=== PATIENT | male | born 1975 | race African-American/Black ===

== ENCOUNTER 2017-04-28 18:51 | Inpatient (IN) | payer MEDICAID ==
[~2017-04-28] VITALS: Ht 177.8 cm; Wt 76.2 kg
--- NOTE | 2017-04-28 18:45 | NUR ---
PT RECIEVED FROM EMS DIRECT ADMIT FROM [place] WITH HTN. 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 PT WAS ON CARDENE DRIP PER EMS. PT IS UNCOOPERATIVE AND UNWILLING TO GIVE INFORMATION TO STAFF IN ORDER TO PROCEDE WITH CARE. PT HAS HEMASPLIT IN RIGHT CHEST WITH 4X4 GAUZE AND PAPER TAPE SECURING. DRESSING IS PEELING OFF AND POTENTIAL INFECTION RISK. REPLACED WITH NEW CVL DRESSING IN STERILE FASHION. DR MOORE CONSULTED. ASSESSMENT COMPLETED AT THIS TIME. PT PLACED ON O2 AT 2L NC. SAT 98% RESPIRATIONS SHALLOW. CTA IN UPPER LOBES BILATERALLY. DIMINNISHED IN MIDDLE AND LOWERR LOBES. WILL CONTINUE TO MONITOR THROUGHOUT SHIFT
--- NOTE | 2017-04-28 18:50 | NUR ---
PT CAME VIA EMS ON . ONCOMING NURSE NOTIFIED.
[2017-04-28 19:00] VITALS: BP 178/140
[2017-04-28 20:00] VITALS: BP 207/139
[2017-04-28 21:00] VITALS: BP 225/151
--- NOTE | 2017-04-28 21:00 | NUR ---
DR MOORE HAS SEEN PT AND NEW ORDERS RECIEVED. PT IV NO LONGER PATENT. WILL ATTEMPT TO REPLACE. B/P ELEVATED IN 190'S AND LOW 200'S SYSTOLIC AT THIS TIME.
[2017-04-28 22:00] VITALS: BP 214/155
[2017-04-28 22:37] VITALS: BP 164/117; BMI 24.1
[2017-04-28 23:00] VITALS: BP 213/148
--- NOTE | 2017-04-28 23:00 | NUR ---
REASSESSMENT COMPLETED SEE FLOWSHEET FOR FULL DETAILS. PT IV ATTEMPTED BY MYSELF AND 3 EXPERIENCED NURSED WITH MULTIPLE ATTEMPTS EACH. NEW ACCESS FINALLY GAINED IN LEFT AC. PO MEDS HAVE NOT REDUCE B/P WILL PLACE ON NIPRIDE DRIP. WILL CONTINUE TO MONITOR THROUGHOUT SHIFT.
[2017-04-29] VITALS (70 sets, daily range): BP systolic 112–228; BP diastolic 72–155; Ht 177.8 cm; Wt 76.2 kg
--- NOTE | 2017-04-29 01:00 | NUR ---
PT ON NIPRIDE DRIP AT 1.5 MCG/KG/MIN WILL TITRATE ORDERED. B/P NOW IN 180'S SYSTOLIC THOUGH DYSTOLIC REMAINS ABOVE 100. NO OTHER CHANGED AT THIS TIME. WILL CONTINUE TO MONITOR
--- NOTE | 2017-04-29 03:00 | NUR ---
REASSESSMENT COMPLTED. PT STILL IN 180'S SYSTOLIC. DIASTOLIC OVER 100; HOWEVER, PT REFUSES TITRATION STATING THAT ANY MORE WILL MAKE HIM VERY SICK. THIS IS DESPITE EDUCATION EFFORTS ON RISKS OF HTN ETC. WILL VONTINUE TO EDUCATE, AND MONITOR FOR COMPLICATIONS
[2017-04-29 04:47] LABS: BASOPHILS 0.3 % (0-2); EOSINOPHILS 2.2 % (0-7); HEMATOCRIT 30.2 % (42.0-54.0); HEMOGLOBIN 9.5 g/dL (13.5-17.5); IMMATURE GRANULOCYTES 0.2 % (0-5); MCH 25.3 pg (26.0-34.0); MCHC 31.5 g/dL (31.0-37.0); MCV 80.3 fL (80.0-100.0); MEAN PLATELET VOLUME 10.6 fL (7.4-10.4); MONOCYTES 4.7 % (2-11); NEUTROPHILS 73.6 % (40-80); PLATELET COUNT 251 10x3/uL (130-400); RBC 3.76 10x6/uL (4.20-6.10); RDW 16.5 % (11.5-14.5); WBC 9.1 10x3/uL (4.8-10.8)
[2017-04-29 04:51] LABS: ANION GAP 16.5 mmol/L (8-16); CALCIUM 8.1 mg/dL (8.5-10.1); CARBON DIOXIDE 20.8 mmol/L (21.0-32.0); CREATININE - SERUM 4.1 mg/dL (0.6-1.3); POTASSIUM - SERUM 4.3 mmol/L (3.5-5.1)
--- NOTE | 2017-04-29 05:07 | NUR ---
PT HAS BEEN VERY UNCOOPERATIVE THROUGHOUT SHIFT. AND AGGRESSIVE TOWARDS MALE STAFF, AND MAKES INAPPROPRIATE COMMENTS TO FEMALE STAFF. REFUSES TITRATION OF NIPRIDE BECAUSE HE STATES IT "MESSED HIM UP ONE TIME" THOUGH HE STATES HE IS NOT FEELING ANY ADVERSE SYMPTOMS AT THE MOMENT.HAVE BEEN ABLE TO INCREASE DOSE TO 2.5 MCG/KG/MIN WITH MUCH EDUCATION, AND ENCOURAGEMENT. WILL CONTINUE TO MONITOR.
--- NOTE | 2017-04-29 07:00 | NUR ---
PT REPORT REC'D, PT CARE ASSUMED. PT [id number] SITTING UP IN BED, NO C/O PAIN, VSS, 4LNC. RIGHT UPPER CHEST HEMOSPLIT, S/L'ED, DRESSING CDI. RIGHT AC PIV WITH FLUIDS INFUSING, SEE FLOW SHEET. DRESSING CDI, NO SIGNS OF INFILTRATION. PT USES BEDSIDE URINAL NEEDED. SHIFT ASSESSMENT COMPLETED, SEE FLOW SHEET. ROOM FREE OF CLUTTER, BED LOCKED IN LOWEST POSITION, CALL LIGHT IN REACH, WILL CONTINUE TO MONITOR PT.
--- NOTE | 2017-04-29 09:13 | NUR ---
DIALYSIS AT THE BEDSIDE, VSS, WILL CONTINUE TO MONIOTR PT.
--- NOTE | 2017-04-29 11:00 | NUR ---
DIALYSIS AT THE BEDSIDE, VSS, REASSESSMENT COMPLETED, SEE FLOW SHEET. PT SITTING UP IN BED EATING LUNCH. ROOM FREE OF CLUTTER, CALL LIGHT IN REACH, WILL CONTINUE TO MONITOR PT.
--- NOTE | 2017-04-29 11:50 | NUR ---
PT C/O PAIN RATED "10/10 IN MY LEGS AND FEET" PAIN MEDS GIVEN, WILL CONTINUE TO MONITOR PT.
--- NOTE | 2017-04-29 14:48 | NUR ---
PT FINISHED WITH DIALYSIS, VSS, WILL CONTINUE TO MONITOR PT.
--- NOTE | 2017-04-29 14:48 | NUR ---
PT FINISHED WITH DIALYSIS, 0900MEDS GIVEN. WILL CONTINUE TO MONITOR PT.
--- NOTE | 2017-04-29 14:49 | NUR ---
EXPLAINED MEDICATIONS TO PT, PT REQUESTING TO SEE LABELS OF MEDICATIONS, EXPLAINED MEDICAITON TO PT, PT REFUSED MEDICATIONS, WILL INFORM RENAL.
--- NOTE | 2017-04-29 14:59 | NUR ---
* Is the patient Alert and Oriented? No 0 * Preadmission Environment Homeless 0 * ADLs Independent 0 * List name and contact numbers for known caregivers / representatives who currently or will assist patient after discharge: Sister - Richmond Michaels [phone] * Additional services required to return to the preadmission environment? Yes 0 * Can the patient safely return to the preadmission environment? No 0 * Has this patient been hospitalized within the prior 30 days at any hospital? Yes Patient Name: YARELI AG Admission Status: Elective Accout number: [id number] Admission Date: 04-28-2017 : 1975 Admission Diagnosis: Attending: ERVIN Current LOS: 1 Primary Insurance: MEDICAID [place] Discharge Planning Comments: CM met with patient to assess dc plans/needs. Patient is confused but able to answer most questions. He tells me he lives alone, but can not tell me where. He states he was not going to HD "because I didn't have a ride". He gave permission for me to call and speak with his sister, Richmond Michaels . Spoke with her via telephone. She states she lives in [place]. She reports patient was discharged from [facility] in [place] about 2 weeks ago. He is a new HD patient. She states patient is homeless and to her knowledge was staying with different friends. 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 She reports there is not any family locally to help patient at discharge. She requests patient go to a nursing facility at discharge so he can receive the medical needs can be met. Provided her with CM & nursing units phone numbers. CM will follow & assist as needed. Bulldozer Mechanic: Ruth Lopez
--- NOTE | 2017-04-29 15:00 | NUR ---
PT SITTING UP IN BED, NO C/O PAIN, VSS, REASSESSMENT COMPLETED, SEE FLOW SHEET. ROOM FREE OF CLUTTER, CALL LIGHT IN REACH, WILL CONTINUE TO MONITOR PT.
--- NOTE | 2017-04-29 15:00 | NUR ---
SPOKE WITH DEJON JACKSON RN FROM DR. MOORE'S OFFICE, INFORMED HER THAT PT REFUSED BP MEDICATIONS, "I WILL TELL DR. MOORE."
--- NOTE | 2017-04-29 16:15 | NUR ---
PT REFUSING TO KEEP BLOOD PRESSURE CUFF ON, INFORMED PT THAT WE NEED TO CHECK HIS BP EVERY 15 MINUTES WITH THE MEDICINE THAT HE IS ON, PT REFUSING TO KEEP BP ON.
--- NOTE | 2017-04-29 18:07 | NUR ---
TOOK PATIENT DINNER TRAY, PT YELLED, "I TOLD YOU NOT TO FUCKING DO THAT!" ASKED PT WHAT HE DIDN'T WANT ME TO DO, IF HE DID NOT WANT HIS SUPPER, "YOU KNOW WHAT I'M TALKING ABOUT, SHUT THE FUCK UP! GET THE FUCK AWAY, I'M NOT TALKING TO YOU!" PT REFUSING BP CUFF. WILL CONTINUE TO MONITOR PT.
--- NOTE | 2017-04-29 19:00 | NUR ---
Received patient standing up at bedside, assessment completed per flowsheet. Patient AO x4, agitated and uncooperative. Eyes PERRLA @ 4mm with brisk response, sclera slightly reddened. S1/S2 noted NSR on telemetry with HR 77, rhythmic and regular. Breathing is even and unlabored on room air with O2 sat 94%, lung sounds clear bilateral upper and mid with diminished lower. Abdomen is soft and flat with bowel sounds active x4, non-tender. Patient uses urinal jug without assistance, concentrated yellow urine noted. Full ROM all extremities with upper pulses palpable, unable to assess lower with patient standing. R upper chest hemosplit noted, dressing CDI. R AC 20g PIV noted with fluids infusing, dressing CDI. R forearm skin graft present. Patient denies pain or other needs at this time, all VSS and will continue to monitor.
--- NOTE | 2017-04-29 19:10 | NUR ---
Attempted to give patient ordered PRocrit post dialysis, patient refused. Stated "I'm not taking that unless a doctor explains it to me", attempted to provide information but patient demanded RN leave the room.
--- NOTE | 2017-04-29 20:10 | NUR ---
Patient removed all leads and BP cuff, refuses to allow them replaced. Patient will not permit himself to be touched and does not want anyone in room. Will attempt to monitor as best as possible.
--- NOTE | 2017-04-29 21:00 | NUR ---
No visitors at this time, patient sitting in bed watching TV. Denies pain or other needs, states "just want you out of my room". Will attempt to continue monitoring.
--- NOTE | 2017-04-29 23:00 | NUR ---
Reassessment completed per flowsheet, patient standing at bedside. S1/S2 noted, patient will not leave telemetry leads on and refuses to allow them to be replaced. Breathing is even and unlabored on room air, O2 sat unavailable as patient will not wear monitor. Upper pulses palpable, lower unassessed as patient remained standing. Denies pain or other needs at this time, will continue to monitor.
--- NOTE | 2017-04-30 01:00 | NUR ---
Patient resting in bed with eyes closed, breathing is even and unlabored on room air. Patient refuses to wear leads/BP cuff, will not permit replacement of monitor. Denies pain or other needs at this time, will continue to monitor.
--- NOTE | 2017-04-30 03:00 | NUR ---
Reassessment completed per flowsheet, patient resting in bed with eyes closed. Patient remains uncooperative, will not allow leads/BP cuff to be placed. S1/S2 noted, rhythmic and regular. Breathing is even and unlabored on room air, O2 sat unavailable. Unable to assess pulses/cap refill as patient isis not permit being touched. Denies pain or other needs at this time, will continue to monitor.
--- NOTE | 2017-04-30 05:00 | NUR ---
Patient resting in bed with eyes closed, no s/s of distress noted. No monitor/BP available as patient will not allow placement of leads or cuff. Patient does not allow physical contact, becomes agitated and aggressive if attempted. Unable to monitor with telemetry, will continue to observe.
[2017-04-30 08:15] VITALS: BP 208/150
[2017-04-30 08:20] LABS: HEPATITIS C ANTIBODY 0.2 (0.0-0.9)
--- NOTE | 2017-04-30 08:35 | NUR ---
0715-RECIEVED ASLEEP-NOTED REGULAR RESPIRATIONS -R AC IN PLACE WITH NIPRIDE GTT ATTACHED AND OFF-NOTED NIBP AND MONITOR OFF PT-REFUSING TO BE TOUCHED 0830-BREAKFEST TRAY BROUGHT-BARGAINED FOR NIBP CHECK-STARTED IN R ARM WITH AC IV-ASSUMPTION MADE-L ARM RESERVE-PT HOLLERED-YOU WANT TO BREAK MY FISTULA?-NO FISTULA PALPATED-NOTED SKIN GRAFT SITE-OLD TO L FOREARM-CHECKED L ARM-NO FISTULA NOTED/SCARRING-PT HOSTILE TO SAME-ALLOWED TO PLACE 0845-CALLED [facility] FOR RECORD OF FISTULA-STATED NONE PLACED-ONLY SITE DOCUMENTED R SC [id number] NOT SHOW UP FOR SCHEDULED APPT FOR FISTULA WORK UP- 0900-REFUSED PO MEDS-TURNED TO L SIDE-KBRN
[2017-04-30] MEDS ORDERED: PROCARDIA XL PO (08:53)
[2017-04-30] MEDS ORDERED: METOPROLOL TART50 MG PO (08:53)
[2017-04-30] MEDS ORDERED: DIOVAN80 MG PO (08:53)
--- NOTE | 2017-04-30 09:16 | NUR ---
8147-DR POLO AT [facility]-PT REFUSED TO ACKNOWLEDGE DR POLO PRESENCE-REQUESTED PT TO TAKE MEDICATION-PT REFUSED TO ACKNOWLEDGE AND PULLED BLANKET OVER HEAD-KBRN 0920-SISTER NOTIFIED NEXT OF KIN REGARDING DISCHARGE AND ADDRESS FOR [place] TRIP-SISTER STATED I LIVE IN [place]-SEND HIM IF YOU WANT- INFORMED OF AGGRESSIVE DIFFICULTIES-FOR COMPLIANCE-REQUESTED TO SPEAK WITH PT-CALL TRANSFERED-AND BROUGHT BP PILLS-PT BECAME VERY HOSTILE-BROUGHT SELF INTO NURSES SPACE AND THREATENING-STATED WAS NOT AWARE DR WAS IN RM-PT DID TAKE PILLS WHILE SISTER ON TELEPHONE- CHECKED WITH RENAL SERVICES AND REQUESTING CONTINUED DISCHARGE PLAN
--- NOTE | 2017-04-30 11:02 | NUR ---
DC order rec'd. Patient is alert & oriented. He is calm & cooperative at this moment. He states he does not have a ride home to [place]. He states his address is [address] [place] [address] [address] in [place]. Call placed to [facility] - They have patient in their system and will transport home today. Confirmation # [id number]. [facility] service representative confirms they have patient scheduled for transport to HD in [place] the entire month of May - MWF @ 1130. They transport him to & from the above address. [facility] will call nursing unit when they arrive so patient can be taken to front door. Discussed above with patient. He is agreeable to plan. Also discussed importance of going to all scheduled HD appointments - also verbalizes understanding.
--- NOTE | 2017-04-30 11:25 | NUR ---
WENT TO REMOVE R AC IV NOTED ALREADY OUT-FOUND PT CLOTHING IN [id number] FOR HOSPITAL SCRUBS-FOUND 2PRS SHOES AND OLD SQUARE CELL PHONE-KBRN
--- NOTE | 2017-04-30 13:17 | NUR ---
PT ASLEEP LUNCH TRAY AT [facility]-AND HAS MADE TO EFFORT TO DRESS-AWAKE AND ALERT WHEN GIVEN HOSPITAL SCRUBS-AND AWARE SCAT BUS SCHEDULED TO ARRIVE-KBRN
--- NOTE | 2017-04-30 15:56 | NUR ---
1430-SCAT QUALITY COMPLIANCE CONSULTANT AT BEDSIDE-PT NOT DRESSED-STATED WANT TO EAT NOW-ENCOURAGED PT TO TAKE LUNCH AND TO DRESS AT THIS TIME-PT BECAME VERY BELIGERENT-STATING GET YOUR FUCKING PREJUDICE OUT OF HERE-SECURITY/ENGINEERING NOTIFIED OF SITUATION-- 1445-ENGINEERING ESCORTED PT VIA WHEELCHAIR-PRESCRIPTIONS PLACED IN CHAIR WITH PT NOT ABLE TO OBTAIN SIGNATURE-STATED IF CAN'T HAVE PAIN PRESCRIPTION WILL NOT FILL-
== END 2017-04-30 15:00 | disposition home or self-care (01) | DRG 682 ==
LOC: D.ICU 18:51
PROVIDERS: Internal Medicine Nephrology; ADMIT Internal Medicine
PROC: 5A1D60Z (ICD-10-PCS; principal; 2017-04-29)
DX: I12.0 Hypertensive chronic kidney disease with stage 5 chronic kidney disease or end stage renal disease (principal); N18.6 End stage renal disease; Z99.2 Dependence on renal dialysis; Z91.15 Patient's noncompliance with renal dialysis; D63.1 Anemia in chronic kidney disease; F41.9 Anxiety disorder, unspecified; F32.9 Major depressive disorder, single episode, unspecified; Z91.14 Patient's other noncompliance with medication regimen; R52 Pain, unspecified